=== PATIENT | female | born 1935 | race Caucasian/White ===

== ENCOUNTER 2021-11-02 10:28 | Inpatient (IN) ==
[2021-11-02] MEDS ORDERED: ONDANSETRON 4 MG/2 ML VIAL IV STA (10:37)
[2021-11-02] MEDS ORDERED: fentaNYL 100 MCG/2 ML VIAL IV STA ×2 (10:37→12:06)
[2021-11-02 12:17] LABS: Basophils % 0.3 % (0.0-0.8); Eosinophils % 0.3 % (0.00-10.9); Hematocrit 39.4 VOL% (35.7-47.0); Hemoglobin 12.7 GM/DL (12.0-16.0); Immature Granulocytes % 0.5 %; Immature Granulocytes Absolute 0.07 #; Lymphocytes # 1.3 10*3/uL (1.4-4.0); Lymphocytes % 8.7 % (21.3-54.2); Mean Corpuscular HGB Conc 32.2 GM/DL (32-36); Mean Corpuscular Volume 92.3 FL (87-102); Mean Platelet Volume 10.3 FL (9.6-12.0); Monocytes # 0.5 10*3/uL (0.11-0.8); Monocytes % 3.4 % (1.7-12.7); Neutrophils % 86.8 % (38.7-73.9); Platelet Count 242 T/CUMM (130-400); Red Blood Count 4.27 MC/CUMM (3.8-5.5); Red Cell Distribution Width 13.2 % (9.3-17.3); White Blood Count 14.5 T/CUMM (4-12)
[2021-11-02 12:27] LABS: PT Patient Result 11.4 SECS (10.5-12.0); Partial Thromboplastin Time 28.5 SECS (23.8-32.1)
[2021-11-02] MEDS ORDERED: SIMETHICONE CHEW 125 MG TABLET PO PRN (12:57)
[2021-11-02] MEDS ORDERED: GLUCAGON 1 MG VIAL IM PRN (12:57)
[2021-11-02] MEDS ORDERED: DEXTROSE 10% 250 ML BAG IV PRN (12:57)
[2021-11-02] MEDS ORDERED: hydrALAZINE 20 MG/1 ML VIAL IV PRN (12:57)
[2021-11-02] MEDS ORDERED: ALUMINUM/MAGNES/SIMETH MAX STR 30 ML UDCUP PO PRN (12:57)
[2021-11-02] MEDS ORDERED: ONDANSETRON 4 MG/2 ML VIAL IV PRN (12:57)
[2021-11-02] MEDS ORDERED: DOCUSATE SODIUM 100 MG CAPSULE PO PRN (12:57)
[2021-11-02 13:19] LABS: Albumin 3.8 G/DL (3.4-5.0); Bilirubin,Total 0.7 MG/DL (0.20-1.00); Calcium 9.1 MG/DL (8.5-10.1); Total Protein 7.3 G/DL (6.4-8.2)
[2021-11-02 13:26] LABS: Thyroid Stimulating Hormone 2.49 uIU/ml (0.358-3.74)
[2021-11-02] MEDS: LACTATED RINGERS 1,000 ML IV SCH (14:20)
[2021-11-02] MEDS: FLECAINIDE 50 MG TABLET PO SCH (17:30)
[2021-11-02] MEDS: MULTIVITAMIN (OCUVITE) TABLET PO SCH (17:30)
[2021-11-02] MEDS: PROPRANOLOL 40 MG TABLET PO SCH (17:30)
[2021-11-02] MEDS ORDERED: MEPERIDINE 25 MG/1 ML VIAL IV PRN (17:34)
[2021-11-02] MEDS: MEPERIDINE 25 MG/1 ML VIAL IV PRN ×2 (17:50→22:09)
[2021-11-02 18:41] LABS: Bacteria,Urine Moderate /HPF (Few); Mucus,Urine Occasional /LPF (Occasional); RBC,Urine 8 /HPF (0-4); Squamous Epithelial Cell,Urine Occasional /HPF (0-10)
[2021-11-02 18:45] LABS: Urine Appearance Clear (Clear); Urine Color Yellow (Yellow)
[2021-11-02 18:46] LABS: Bilirubin,Urine Negative (Negative); Blood, Urine Small mg/dL (Negative); Glucose,Urine (UA) Negative (Negative); Ketones,Urine >=160 mg/dL (Negative); Nitrite,Urine Negative (Negative); Protein,Urine Negative (Negative); Urine Specific Gravity 1.025 (1.001-1.035); Urine Urobilinogen 0.2 eU/dL (<2.0)
[2021-11-02] MEDS: NORTRIPTYLINE 25 MG CAPSULE PO SCH (20:16)
[2021-11-03] MEDS: LACTATED RINGERS 1,000 ML IV SCH ×3 (02:28→09:24)
[2021-11-03 05:56] LABS: Basophils % 0.3 % (0.0-0.8); Eosinophils # 0.1 10*3/uL (0.0-0.87); Eosinophils % 0.9 % (0.00-10.9); Immature Granulocytes % 0.5 %; Immature Granulocytes Absolute 0.06 #; Lymphocytes # 1.7 10*3/uL (1.4-4.0); Lymphocytes % 13.2 % (21.3-54.2); Mean Corpuscular HGB Conc 31.4 GM/DL (32-36); Mean Corpuscular Volume 93.8 FL (87-102); Mean Platelet Volume 10.6 FL (9.6-12.0); Monocytes % 8.1 % (1.7-12.7); Platelet Count 193 T/CUMM (130-400); Red Blood Count 3.73 MC/CUMM (3.8-5.5); Red Cell Distribution Width 13.2 % (9.3-17.3); White Blood Count 12.9 T/CUMM (4-12)
[2021-11-03] MEDS ORDERED: CLINDAMYCIN INJ 900 MG/50 ML PREMIX IV ONE (05:56)
[2021-11-03] MEDS ORDERED: ONDANSETRON 4 MG/2 ML VIAL ONE (06:19)
[2021-11-03] MEDS ORDERED: SEVOFLURANE 1 UNIT/15 MINUTE INH ONE ×6 (06:19→08:25)
[2021-11-03] MEDS ORDERED: ACETAMINOPHEN INJ 1,000 MG/100 ML VIAL IV ONE (06:19)
[2021-11-03] MEDS ORDERED: LIDOCAINE 2% 5 ML VIAL ONE (06:19)
[2021-11-03] MEDS ORDERED: ROCURONIUM 50 MG/5 ML VIAL IV ONE (06:19)
[2021-11-03] MEDS ORDERED: propofoL 200 MG/20 ML VIAL IV ONE (06:19)
[2021-11-03] MEDS ORDERED: DEXAMETHASONE 4 MG/1 ML VIAL ONE ×3 (06:19→07:40)
[2021-11-03] MEDS ORDERED: fentaNYL 100 MCG/2 ML VIAL ONE (06:23)
[2021-11-03] MEDS ORDERED: DEXMEDETOMIDINE 200 MCG/2 ML VIAL ONE (06:25)
[2021-11-03 06:26] LABS: Albumin 3.1 G/DL (3.4-5.0); Bilirubin,Total 0.7 MG/DL (0.20-1.00); Osmolality,Calculated 273.8 MOS/KG (273-304); Potassium 4.3 MMOL/L (3.5-5.1); Risk Ratio 3.35; Total Protein 5.8 G/DL (6.4-8.2); VLDL Cholesterol 29.8 MG/DL
[2021-11-03] MEDS ORDERED: ROPIVACAINE 0.5% 30 ML VIAL ONE (06:31)
[2021-11-03] MEDS ORDERED: LIDOCAINE 1% 5 ML VIAL ONE (06:31)
[2021-11-03] MEDS ORDERED: ePHEDrine 50 MG/ML VIAL ONE ×2 (07:09→07:24)
[2021-11-03] MEDS ORDERED: PHENYLEPHRINE 1 MG/10 ML SYRINGE IV ONE ×2 (07:11→07:40)
[2021-11-03] MEDS ORDERED: LACTATED RINGERS 1,000 ML IV ONE (07:32)
[2021-11-03] MEDS ORDERED: PHENYLEPHRINE 10 MG/1 ML VIAL IV ONE (07:35)
[2021-11-03] MEDS ORDERED: SODIUM CHLORIDE 0.9% 250 ML IV ONE (07:40)
[2021-11-03] MEDS ORDERED: GLYCOPYRROLATE 0.4 MG/2 ML VIAL ONE (07:43)
[2021-11-03] MEDS ORDERED: NEOSTIGMINE 10 MG/10 ML VIAL ONE (07:45)
[2021-11-03] MEDS ORDERED: diphenhydrAMINE CAP 25 MG CAPSULE PO PRN (08:34)
[2021-11-03] MEDS ORDERED: LACTULOSE 20 GM/30 ML UDCUP PO PRN (08:34)
[2021-11-03] MEDS: HYDROmorphone 1 MG/1 ML SYRINGE IV PRN ×2 (09:02→09:16)
[2021-11-03] MEDS ORDERED: ONDANSETRON 4 MG/2 ML VIAL IV PRN (09:04)
[2021-11-03] MEDS ORDERED: HYDROmorphone 1 MG/1 ML SYRINGE ONE (09:05)
[2021-11-03] MEDS: PANTOPRAZOLE 40 MG TABLET PO SCH (09:33)
[2021-11-03] MEDS ORDERED: NALOXONE 0.4 MG/ML VIAL IV PRN (11:48)
[2021-11-03] MEDS: CLINDAMYCIN INJ 900 MG/50 ML PREMIX IV SCH ×2 (14:45→22:38)
[2021-11-03] MEDS: MULTIVITAMIN (OCUVITE) TABLET PO SCH (16:17)
[2021-11-03] MEDS: PROPRANOLOL 40 MG TABLET PO SCH (16:17)
[2021-11-03] MEDS: FLECAINIDE 50 MG TABLET PO SCH (16:17)
[2021-11-03 21:49] LABS: Basophils % 0.1 % (0.0-0.8); Hematocrit 25.7 VOL% (35.7-47.0); Hemoglobin 8.5 GM/DL (12.0-16.0); Immature Granulocytes % 0.6 %; Immature Granulocytes Absolute 0.09 #; Lymphocytes # 0.6 10*3/uL (1.4-4.0); Lymphocytes % 4.4 % (21.3-54.2); Mean Corpuscular HGB Conc 33.1 GM/DL (32-36); Mean Corpuscular Volume 92.1 FL (87-102); Mean Platelet Volume 9.7 FL (9.6-12.0); Monocytes # 0.9 10*3/uL (0.11-0.8); Monocytes % 6.7 % (1.7-12.7); Neutrophils % 88.2 % (38.7-73.9); Platelet Count 172 T/CUMM (130-400); Red Blood Count 2.79 MC/CUMM (3.8-5.5); Red Cell Distribution Width 13.1 % (9.3-17.3); White Blood Count 13.9 T/CUMM (4-12)
[2021-11-03 22:00] LABS: INR 1.1; PT Patient Result 12.4 SECS (10.5-12.0); Partial Thromboplastin Time 32.2 SECS (23.8-32.1)
[2021-11-03 22:12] LABS: Albumin 2.7 G/DL (3.4-5.0); Bilirubin,Total 0.5 MG/DL (0.20-1.00); Calcium 8.3 MG/DL (8.5-10.1); Potassium 4.3 MMOL/L (3.5-5.1); Total Protein 5.4 G/DL (6.4-8.2)
[2021-11-03] MEDS: FONDAPARINUX 2.5 MG/0.5 ML SYRINGE SUBCUT SCH (22:22)
[2021-11-03] MEDS: NORTRIPTYLINE 25 MG CAPSULE PO SCH (22:22)
[2021-11-03 22:25] LABS: Lymphocytes 4 % (20-55); Platelet Estimate Adequate; Total Cells Counted 100
[2021-11-04] MEDS: HYDROmorphone 1 MG/1 ML SYRINGE IV PRN ×4 (02:55→20:37)
[2021-11-04 06:07] LABS: Basophils % 0.1 % (0.0-0.8); Hematocrit 23.6 VOL% (35.7-47.0); Hemoglobin 7.6 GM/DL (12.0-16.0); Immature Granulocytes % 0.6 %; Immature Granulocytes Absolute 0.09 #; Lymphocytes % 6.4 % (21.3-54.2); Mean Corpuscular HGB Conc 32.2 GM/DL (32-36); Mean Corpuscular Volume 92.2 FL (87-102); Monocytes # 1.1 10*3/uL (0.11-0.8); Monocytes % 7.5 % (1.7-12.7); Neutrophils % 85.4 % (38.7-73.9); Platelet Count 158 T/CUMM (130-400); Red Blood Count 2.56 MC/CUMM (3.8-5.5); Red Cell Distribution Width 13.2 % (9.3-17.3); White Blood Count 14.7 T/CUMM (4-12)
[2021-11-04 06:30] LABS: Calcium 8.1 MG/DL (8.5-10.1); Osmolality,Calculated 275.8 MOS/KG (273-304); Potassium 4.3 MMOL/L (3.5-5.1)
[2021-11-04] MEDS ORDERED: ALBUTEROL 2.5 MG/3 ML NEB RESP TX PRN (07:30)
[2021-11-04] MEDS ORDERED: SODIUM CHLORIDE 0.9% 1,000 ML IV PRN (08:17)
[2021-11-04] MEDS: CLINDAMYCIN INJ 900 MG/50 ML PREMIX IV SCH (08:39)
[2021-11-04] MEDS: PANTOPRAZOLE 40 MG TABLET PO SCH (08:43)
[2021-11-04] MEDS: PROPRANOLOL 40 MG TABLET PO SCH (17:41)
[2021-11-04] MEDS: FLECAINIDE 50 MG TABLET PO SCH (17:41)
[2021-11-04] MEDS: MULTIVITAMIN (OCUVITE) TABLET PO SCH (17:41)
[2021-11-04] MEDS: NORTRIPTYLINE 25 MG CAPSULE PO SCH (20:37)
[2021-11-04] MEDS: FONDAPARINUX 2.5 MG/0.5 ML SYRINGE SUBCUT SCH (20:38)
[2021-11-05] MEDS: LACTATED RINGERS 1,000 ML IV SCH ×2 (05:07→06:18)
[2021-11-05] MEDS: HYDROmorphone 1 MG/1 ML SYRINGE IV PRN (05:31)
[2021-11-05 05:34] LABS: Basophils % 0.3 % (0.0-0.8); Eosinophils # 0.1 10*3/uL (0.0-0.87); Eosinophils % 0.9 % (0.00-10.9); Hematocrit 31.1 VOL% (35.7-47.0); Hemoglobin 10.2 GM/DL (12.0-16.0); Immature Granulocytes % 0.5 %; Immature Granulocytes Absolute 0.07 #; Lymphocytes # 1.2 10*3/uL (1.4-4.0); Lymphocytes % 9.2 % (21.3-54.2); Mean Corpuscular HGB Conc 32.8 GM/DL (32-36); Mean Corpuscular Volume 90.9 FL (87-102); Mean Platelet Volume 10.6 FL (9.6-12.0); Monocytes # 1.5 10*3/uL (0.11-0.8); Monocytes % 11.6 % (1.7-12.7); Neutrophils % 77.5 % (38.7-73.9); Platelet Count 159 T/CUMM (130-400); Red Blood Count 3.42 MC/CUMM (3.8-5.5); Red Cell Distribution Width 14.8 % (9.3-17.3); White Blood Count 12.8 T/CUMM (4-12)
[2021-11-05 06:03] LABS: Calcium 8.5 MG/DL (8.5-10.1); Osmolality,Calculated 279.5 MOS/KG (273-304); Potassium 3.9 MMOL/L (3.5-5.1)
[2021-11-05 06:10] LABS: Folate 5.69 NG/ML (5.38-24.0)
[2021-11-05 06:10] LABS: % Iron Saturation 15.7 % (18-50)
[2021-11-05] MEDS: PANTOPRAZOLE 40 MG TABLET PO SCH (09:00)
[2021-11-05] MEDS: FERROUS SULFATE 325 MG TABLET PO SCH (09:00)
[2021-11-05] MEDS ORDERED: MAGNESIUM HYDROXIDE SUSP 30 ML UDCUP PO ONE (10:30)
[2021-11-05] MEDS: MULTIVITAMIN (OCUVITE) TABLET PO SCH (16:54)
[2021-11-05] MEDS: FLECAINIDE 50 MG TABLET PO SCH (16:54)
[2021-11-05] MEDS: PROPRANOLOL 40 MG TABLET PO SCH (16:54)
[2021-11-05] MEDS: DOCUSATE SODIUM 100 MG CAPSULE PO SCH (21:34)
[2021-11-05] MEDS: NORTRIPTYLINE 25 MG CAPSULE PO SCH (21:36)
[2021-11-05] MEDS: FONDAPARINUX 2.5 MG/0.5 ML SYRINGE SUBCUT SCH (21:36)
[2021-11-06 04:22] LABS: Basophils % 0.3 % (0.0-0.8); Eosinophils # 0.2 10*3/uL (0.0-0.87); Eosinophils % 1.7 % (0.00-10.9); Hematocrit 29.4 VOL% (35.7-47.0); Hemoglobin 9.4 GM/DL (12.0-16.0); Immature Granulocytes % 0.5 %; Immature Granulocytes Absolute 0.06 #; Lymphocytes # 1.9 10*3/uL (1.4-4.0); Lymphocytes % 16.6 % (21.3-54.2); Mean Corpuscular Volume 92.5 FL (87-102); Mean Platelet Volume 10.5 FL (9.6-12.0); Monocytes # 1.3 10*3/uL (0.11-0.8); Monocytes % 11.7 % (1.7-12.7); Neutrophils % 69.2 % (38.7-73.9); Platelet Count 167 T/CUMM (130-400); Red Blood Count 3.18 MC/CUMM (3.8-5.5); Red Cell Distribution Width 14.6 % (9.3-17.3); White Blood Count 11.2 T/CUMM (4-12)
[2021-11-06 04:36] LABS: Calcium 8.7 MG/DL (8.5-10.1); Osmolality,Calculated 278.5 MOS/KG (273-304)
[2021-11-06 04:46] LABS: Hypochromia Slight; Platelet Estimate Normal
[2021-11-06] MEDS: HYDROmorphone 1 MG/1 ML SYRINGE IV PRN (08:54)
[2021-11-06] MEDS: DOCUSATE SODIUM 100 MG CAPSULE PO SCH ×2 (08:54→20:52)
[2021-11-06] MEDS: FERROUS SULFATE 325 MG TABLET PO SCH (08:54)
[2021-11-06] MEDS: BISACODYL 10 MG SUPP RECTAL PRN (08:54)
[2021-11-06] MEDS: PANTOPRAZOLE 40 MG TABLET PO SCH (08:54)
[2021-11-06] MEDS ORDERED: SODIUM PHOSPHATE ENEMA 133 ML BOTTLE RECTAL ONE (09:55)
[2021-11-06] MEDS ORDERED: BISACODYL 10 MG SUPP RECTAL ONE (10:08)
[2021-11-06] MEDS: MAGNESIUM HYDROXIDE SUSP 30 ML UDCUP PO PRN (13:22)
[2021-11-06] MEDS: FLECAINIDE 50 MG TABLET PO SCH (16:36)
[2021-11-06] MEDS: MULTIVITAMIN (OCUVITE) TABLET PO SCH (16:36)
[2021-11-06] MEDS: PROPRANOLOL 40 MG TABLET PO SCH (16:36)
[2021-11-06] MEDS: NORTRIPTYLINE 25 MG CAPSULE PO SCH (20:52)
[2021-11-07 05:17] LABS: Basophils % 0.2 % (0.0-0.8); Eosinophils # 0.2 10*3/uL (0.0-0.87); Eosinophils % 1.8 % (0.00-10.9); Hematocrit 26.8 VOL% (35.7-47.0); Hemoglobin 8.6 GM/DL (12.0-16.0); Immature Granulocytes % 0.6 %; Immature Granulocytes Absolute 0.06 #; Lymphocytes # 1.8 10*3/uL (1.4-4.0); Lymphocytes % 18.5 % (21.3-54.2); Mean Corpuscular HGB Conc 32.1 GM/DL (32-36); Mean Platelet Volume 10.4 FL (9.6-12.0); Monocytes # 1.1 10*3/uL (0.11-0.8); Monocytes % 11.7 % (1.7-12.7); Neutrophils % 67.2 % (38.7-73.9); Platelet Count 204 T/CUMM (130-400); Red Blood Count 2.85 MC/CUMM (3.8-5.5); Red Cell Distribution Width 14.1 % (9.3-17.3); White Blood Count 9.8 T/CUMM (4-12)
[2021-11-07 05:32] LABS: Calcium 8.4 MG/DL (8.5-10.1); Osmolality,Calculated 278.5 MOS/KG (273-304); Potassium 4.7 MMOL/L (3.5-5.1)
[2021-11-07] MEDS: PANTOPRAZOLE 40 MG TABLET PO SCH (09:39)
[2021-11-07] MEDS: FERROUS SULFATE 325 MG TABLET PO SCH (09:39)
[2021-11-07] MEDS: DOCUSATE SODIUM 100 MG CAPSULE PO SCH ×2 (09:41→20:46)
[2021-11-07] MEDS: FLECAINIDE 50 MG TABLET PO SCH (17:41)
[2021-11-07] MEDS: PROPRANOLOL 40 MG TABLET PO SCH (17:41)
[2021-11-07] MEDS: MULTIVITAMIN (OCUVITE) TABLET PO SCH (17:41)
[2021-11-07] MEDS: NORTRIPTYLINE 25 MG CAPSULE PO SCH (20:46)
[2021-11-08 05:48] LABS: Basophils % 0.3 % (0.0-0.8); Eosinophils # 0.2 10*3/uL (0.0-0.87); Eosinophils % 1.8 % (0.00-10.9); Hematocrit 26.4 VOL% (35.7-47.0); Hemoglobin 8.4 GM/DL (12.0-16.0); Immature Granulocytes % 0.9 %; Immature Granulocytes Absolute 0.09 #; Lymphocytes # 1.7 10*3/uL (1.4-4.0); Lymphocytes % 16.9 % (21.3-54.2); Mean Corpuscular HGB Conc 31.8 GM/DL (32-36); Mean Corpuscular Volume 93.3 FL (87-102); Mean Platelet Volume 10.4 FL (9.6-12.0); Monocytes # 1.3 10*3/uL (0.11-0.8); Monocytes % 13.1 % (1.7-12.7); Platelet Count 228 T/CUMM (130-400); Red Blood Count 2.83 MC/CUMM (3.8-5.5); Red Cell Distribution Width 14.2 % (9.3-17.3)
[2021-11-08 06:00] LABS: Calcium 8.5 MG/DL (8.5-10.1); Osmolality,Calculated 280.4 MOS/KG (273-304); Potassium 3.9 MMOL/L (3.5-5.1)
[2021-11-08] MEDS: ASPIRIN EC 81 MG TABLET PO SCH (08:46)
[2021-11-08] MEDS: FERROUS SULFATE 325 MG TABLET PO SCH (08:46)
[2021-11-08] MEDS: PANTOPRAZOLE 40 MG TABLET PO SCH (08:46)
[2021-11-08] MEDS: DOCUSATE SODIUM 100 MG CAPSULE PO SCH ×2 (08:52→21:51)
[2021-11-08] MEDS ORDERED: TUBERCULIN SKIN TEST 0.1 ML SYRINGE INTRADERM ONE (11:00)
[2021-11-08] MEDS: FLECAINIDE 50 MG TABLET PO SCH (16:37)
[2021-11-08] MEDS: MULTIVITAMIN (OCUVITE) TABLET PO SCH (16:37)
[2021-11-08] MEDS: PROPRANOLOL 40 MG TABLET PO SCH (16:37)
[2021-11-08] MEDS: NORTRIPTYLINE 25 MG CAPSULE PO SCH (21:51)
[2021-11-09 06:54] LABS: Basophils % 0.2 % (0.0-0.8); Eosinophils # 0.2 10*3/uL (0.0-0.87); Eosinophils % 1.3 % (0.00-10.9); Hematocrit 27.1 VOL% (35.7-47.0); Hemoglobin 8.5 GM/DL (12.0-16.0); Immature Granulocytes % 1.8 %; Immature Granulocytes Absolute 0.21 #; Lymphocytes # 1.7 10*3/uL (1.4-4.0); Lymphocytes % 14.7 % (21.3-54.2); Mean Corpuscular HGB Conc 31.4 GM/DL (32-36); Mean Corpuscular Volume 93.8 FL (87-102); Mean Platelet Volume 9.8 FL (9.6-12.0); Monocytes # 1.3 10*3/uL (0.11-0.8); Monocytes % 11.2 % (1.7-12.7); Neutrophils % 70.8 % (38.7-73.9); Platelet Count 281 T/CUMM (130-400); Red Blood Count 2.89 MC/CUMM (3.8-5.5); Red Cell Distribution Width 14.1 % (9.3-17.3); White Blood Count 11.4 T/CUMM (4-12)
[2021-11-09 07:11] LABS: Calcium 8.6 MG/DL (8.5-10.1); Osmolality,Calculated 276.5 MOS/KG (273-304); Potassium 3.7 MMOL/L (3.5-5.1)
[2021-11-09] MEDS: PANTOPRAZOLE 40 MG TABLET PO SCH (08:55)
[2021-11-09] MEDS: ASPIRIN EC 81 MG TABLET PO SCH (08:55)
[2021-11-09] MEDS: FERROUS SULFATE 325 MG TABLET PO SCH (08:56)
[2021-11-09] MEDS: DOCUSATE SODIUM 100 MG CAPSULE PO SCH ×2 (08:57→20:39)
[2021-11-09] MEDS: MAGNESIUM HYDROXIDE SUSP 30 ML UDCUP PO PRN (14:26)
[2021-11-09] MEDS: BISACODYL 10 MG SUPP RECTAL PRN (14:26)
[2021-11-09] MEDS: MULTIVITAMIN (OCUVITE) TABLET PO SCH (16:18)
[2021-11-09] MEDS: FLECAINIDE 50 MG TABLET PO SCH (16:18)
[2021-11-09] MEDS: PROPRANOLOL 40 MG TABLET PO SCH (16:18)
[2021-11-09] MEDS: NORTRIPTYLINE 25 MG CAPSULE PO SCH (20:39)
[2021-11-10 05:20] LABS: Basophils % 0.3 % (0.0-0.8); Eosinophils # 0.2 10*3/uL (0.0-0.87); Eosinophils % 1.4 % (0.00-10.9); Hematocrit 26.8 VOL% (35.7-47.0); Hemoglobin 8.6 GM/DL (12.0-16.0); Immature Granulocytes % 1.8 %; Immature Granulocytes Absolute 0.22 #; Lymphocytes # 1.8 10*3/uL (1.4-4.0); Lymphocytes % 14.1 % (21.3-54.2); Mean Corpuscular HGB Conc 32.1 GM/DL (32-36); Mean Corpuscular Volume 93.7 FL (87-102); Mean Platelet Volume 9.5 FL (9.6-12.0); Monocytes # 1.2 10*3/uL (0.11-0.8); Monocytes % 9.8 % (1.7-12.7); Neutrophils % 72.6 % (38.7-73.9); Platelet Count 322 T/CUMM (130-400); Red Blood Count 2.86 MC/CUMM (3.8-5.5); Red Cell Distribution Width 14.5 % (9.3-17.3); White Blood Count 12.6 T/CUMM (4-12)
[2021-11-10 05:36] LABS: Calcium 8.4 MG/DL (8.5-10.1); Osmolality,Calculated 275.7 MOS/KG (273-304); Potassium 4.2 MMOL/L (3.5-5.1)
[2021-11-10] MEDS: FERROUS SULFATE 325 MG TABLET PO SCH (08:51)
[2021-11-10] MEDS: ASPIRIN EC 81 MG TABLET PO SCH (08:51)
[2021-11-10] MEDS: DOCUSATE SODIUM 100 MG CAPSULE PO SCH ×2 (08:51→21:14)
[2021-11-10] MEDS: PANTOPRAZOLE 40 MG TABLET PO SCH (08:51)
[2021-11-10] MEDS: FLECAINIDE 50 MG TABLET PO SCH (17:02)
[2021-11-10] MEDS: PROPRANOLOL 40 MG TABLET PO SCH (17:02)
[2021-11-10] MEDS: MULTIVITAMIN (OCUVITE) TABLET PO SCH (17:03)
[2021-11-10] MEDS: NORTRIPTYLINE 25 MG CAPSULE PO SCH (21:14)
[2021-11-11 05:25] LABS: Basophils % 0.3 % (0.0-0.8); Eosinophils # 0.3 10*3/uL (0.0-0.87); Hematocrit 27.9 VOL% (35.7-47.0); Immature Granulocytes % 2.3 %; Immature Granulocytes Absolute 0.28 #; Lymphocytes # 2.3 10*3/uL (1.4-4.0); Lymphocytes % 18.9 % (21.3-54.2); Mean Corpuscular HGB Conc 32.3 GM/DL (32-36); Mean Corpuscular Volume 94.6 FL (87-102); Mean Platelet Volume 9.7 FL (9.6-12.0); Monocytes # 1.2 10*3/uL (0.11-0.8); Monocytes % 9.9 % (1.7-12.7); Neutrophils % 66.6 % (38.7-73.9); Platelet Count 388 T/CUMM (130-400); Red Blood Count 2.95 MC/CUMM (3.8-5.5); Red Cell Distribution Width 14.9 % (9.3-17.3); White Blood Count 12.2 T/CUMM (4-12)
[2021-11-11] MEDS: FERROUS SULFATE 325 MG TABLET PO SCH (09:54)
[2021-11-11] MEDS: PANTOPRAZOLE 40 MG TABLET PO SCH (09:54)
[2021-11-11] MEDS: DOCUSATE SODIUM 100 MG CAPSULE PO SCH ×2 (09:54→21:05)
[2021-11-11] MEDS: ASPIRIN EC 81 MG TABLET PO SCH (09:54)
[2021-11-11] MEDS: FLECAINIDE 50 MG TABLET PO SCH (16:07)
[2021-11-11] MEDS: MULTIVITAMIN (OCUVITE) TABLET PO SCH (16:07)
[2021-11-11] MEDS: PROPRANOLOL 40 MG TABLET PO SCH (16:07)
[2021-11-11] MEDS: ACETAMINOPHEN 325 MG TABLET PO PRN ×2 (16:08→21:06)
[2021-11-11] MEDS: NORTRIPTYLINE 25 MG CAPSULE PO SCH (21:05)
[2021-11-12 04:51] LABS: Basophils % 0.3 % (0.0-0.8); Eosinophils # 0.3 10*3/uL (0.0-0.87); Eosinophils % 2.5 % (0.00-10.9); Hematocrit 29.5 VOL% (35.7-47.0); Hemoglobin 9.1 GM/DL (12.0-16.0); Immature Granulocytes % 2.8 %; Lymphocytes # 1.9 10*3/uL (1.4-4.0); Lymphocytes % 17.2 % (21.3-54.2); Mean Corpuscular HGB Conc 30.8 GM/DL (32-36); Mean Corpuscular Volume 95.8 FL (87-102); Mean Platelet Volume 10.4 FL (9.6-12.0); Monocytes # 1.1 10*3/uL (0.11-0.8); Monocytes % 10.1 % (1.7-12.7); Neutrophils % 67.1 % (38.7-73.9); Platelet Count 415 T/CUMM (130-400); Red Blood Count 3.08 MC/CUMM (3.8-5.5); Red Cell Distribution Width 15.2 % (9.3-17.3); White Blood Count 10.9 T/CUMM (4-12)
[2021-11-12 05:16] LABS: Osmolality,Calculated 278.5 MOS/KG (273-304); Potassium 4.2 MMOL/L (3.5-5.1)
[2021-11-12] MEDS: DOCUSATE SODIUM 100 MG CAPSULE PO SCH ×2 (08:29→20:39)
[2021-11-12] MEDS: FERROUS SULFATE 325 MG TABLET PO SCH (08:29)
[2021-11-12] MEDS: ASPIRIN EC 81 MG TABLET PO SCH (08:29)
[2021-11-12] MEDS: PANTOPRAZOLE 40 MG TABLET PO SCH (08:29)
[2021-11-12] MEDS: ACETAMINOPHEN 325 MG TABLET PO PRN (10:40)
[2021-11-12] MEDS: MULTIVITAMIN (OCUVITE) TABLET PO SCH (16:03)
[2021-11-12] MEDS: FLECAINIDE 50 MG TABLET PO SCH (16:03)
[2021-11-12] MEDS: PROPRANOLOL 40 MG TABLET PO SCH (16:03)
[2021-11-12] MEDS: busPIRone 5 MG TABLET PO SCH (20:38)
[2021-11-12] MEDS: MELATONIN 3 MG TABLET PO SCH (20:39)
[2021-11-12] MEDS: NORTRIPTYLINE 25 MG CAPSULE PO SCH (20:40)
[2021-11-13] MEDS: PANTOPRAZOLE 40 MG TABLET PO SCH (08:18)
[2021-11-13] MEDS: FERROUS SULFATE 325 MG TABLET PO SCH (08:18)
[2021-11-13] MEDS: ASPIRIN EC 81 MG TABLET PO SCH (08:18)
[2021-11-13] MEDS: busPIRone 5 MG TABLET PO SCH ×2 (08:18→20:20)
[2021-11-13] MEDS: DOCUSATE SODIUM 100 MG CAPSULE PO SCH ×2 (08:19→20:20)
[2021-11-13] MEDS: PROPRANOLOL 40 MG TABLET PO SCH (16:06)
[2021-11-13] MEDS: FLECAINIDE 50 MG TABLET PO SCH (16:06)
[2021-11-13] MEDS: MULTIVITAMIN (OCUVITE) TABLET PO SCH (16:06)
[2021-11-13] MEDS: NORTRIPTYLINE 25 MG CAPSULE PO SCH (20:20)
[2021-11-13] MEDS: MELATONIN 3 MG TABLET PO SCH (20:20)
[2021-11-13] MEDS: ACETAMINOPHEN 325 MG TABLET PO PRN (20:21)
[2021-11-14] MEDS: ACETAMINOPHEN 325 MG TABLET PO PRN ×2 (01:23→11:13)
[2021-11-14] MEDS: FERROUS SULFATE 325 MG TABLET PO SCH (08:05)
[2021-11-14] MEDS: ASPIRIN EC 81 MG TABLET PO SCH (08:05)
[2021-11-14] MEDS: busPIRone 5 MG TABLET PO SCH ×2 (08:05→20:30)
[2021-11-14] MEDS: PANTOPRAZOLE 40 MG TABLET PO SCH (08:06)
[2021-11-14] MEDS: DOCUSATE SODIUM 100 MG CAPSULE PO SCH ×2 (08:06→20:30)
[2021-11-14] MEDS: FLECAINIDE 50 MG TABLET PO SCH (16:02)
[2021-11-14] MEDS: MULTIVITAMIN (OCUVITE) TABLET PO SCH (16:02)
[2021-11-14] MEDS: PROPRANOLOL 40 MG TABLET PO SCH (16:02)
[2021-11-14] MEDS: MELATONIN 3 MG TABLET PO SCH (20:29)
[2021-11-14] MEDS: NORTRIPTYLINE 25 MG CAPSULE PO SCH (20:30)
[2021-11-15 05:04] LABS: Basophils % 0.2 % (0.0-0.8); Eosinophils # 0.4 10*3/uL (0.0-0.87); Eosinophils % 2.6 % (0.00-10.9); Hematocrit 29.8 VOL% (35.7-47.0); Hemoglobin 9.1 GM/DL (12.0-16.0); Immature Granulocytes % 1.7 %; Immature Granulocytes Absolute 0.23 #; Lymphocytes # 2.3 10*3/uL (1.4-4.0); Lymphocytes % 16.5 % (21.3-54.2); Mean Corpuscular HGB Conc 30.5 GM/DL (32-36); Mean Corpuscular Volume 96.8 FL (87-102); Mean Platelet Volume 9.2 FL (9.6-12.0); Monocytes % 6.8 % (1.7-12.7); Neutrophils % 72.2 % (38.7-73.9); Platelet Count 443 T/CUMM (130-400); Red Blood Count 3.08 MC/CUMM (3.8-5.5); Red Cell Distribution Width 16.2 % (9.3-17.3); White Blood Count 13.9 T/CUMM (4-12)
[2021-11-15 05:16] LABS: Calcium 8.9 MG/DL (8.5-10.1); Osmolality,Calculated 277.5 MOS/KG (273-304); Potassium 3.7 MMOL/L (3.5-5.1)
[2021-11-15] MEDS: FERROUS SULFATE 325 MG TABLET PO SCH (08:43)
[2021-11-15] MEDS: DOCUSATE SODIUM 100 MG CAPSULE PO SCH ×2 (08:43→20:39)
[2021-11-15] MEDS: busPIRone 5 MG TABLET PO SCH ×2 (08:43→20:37)
[2021-11-15] MEDS: ASPIRIN EC 81 MG TABLET PO SCH (08:43)
[2021-11-15] MEDS: PANTOPRAZOLE 40 MG TABLET PO SCH (08:44)
[2021-11-15] MEDS ORDERED: ENOXAPARIN 40 MG/0.4 ML SYRINGE SUBCUT SCH (16:00)
[2021-11-15] MEDS: MULTIVITAMIN (OCUVITE) TABLET PO SCH (17:07)
[2021-11-15] MEDS: PROPRANOLOL 40 MG TABLET PO SCH (17:07)
[2021-11-15] MEDS: FLECAINIDE 50 MG TABLET PO SCH (17:08)
[2021-11-15] MEDS: MELATONIN 3 MG TABLET PO SCH (20:37)
[2021-11-15] MEDS: NORTRIPTYLINE 25 MG CAPSULE PO SCH (20:37)
[2021-11-16 05:06] LABS: Basophils # 0.1 10*3/uL (0.0-0.2); Basophils % 0.4 % (0.0-0.8); Eosinophils # 0.3 10*3/uL (0.0-0.87); Eosinophils % 2.5 % (0.00-10.9); Hematocrit 28.6 VOL% (35.7-47.0); Immature Granulocytes % 1.6 %; Immature Granulocytes Absolute 0.22 #; Lymphocytes # 2.3 10*3/uL (1.4-4.0); Lymphocytes % 16.6 % (21.3-54.2); Mean Corpuscular HGB Conc 31.5 GM/DL (32-36); Mean Corpuscular Volume 97.6 FL (87-102); Monocytes # 1.1 10*3/uL (0.11-0.8); Monocytes % 7.9 % (1.7-12.7); Platelet Count 444 T/CUMM (130-400); Red Blood Count 2.93 MC/CUMM (3.8-5.5); Red Cell Distribution Width 16.6 % (9.3-17.3); White Blood Count 13.7 T/CUMM (4-12)
[2021-11-16 05:24] LABS: Calcium 9.3 MG/DL (8.5-10.1); Osmolality,Calculated 279.5 MOS/KG (273-304); Potassium 4.7 MMOL/L (3.5-5.1)
[2021-11-16] MEDS: ACETAMINOPHEN 325 MG TABLET PO PRN ×2 (05:38→13:12)
[2021-11-16] MEDS: ASPIRIN EC 81 MG TABLET PO SCH (09:10)
[2021-11-16] MEDS: DOCUSATE SODIUM 100 MG CAPSULE PO SCH (09:10)
[2021-11-16] MEDS: busPIRone 5 MG TABLET PO SCH (09:10)
[2021-11-16] MEDS: FERROUS SULFATE 325 MG TABLET PO SCH (09:10)
[2021-11-16] MEDS: PANTOPRAZOLE 40 MG TABLET PO SCH (09:10)
[2021-11-16 11:27] VITALS: BP 139/65
== END 2021-11-16 13:45 | DRG 481 ==
LOC: N.ED 10:28 → SUATTDRO 12:54 → N.EDINP 12:54 → N.3E 14:46
PROVIDERS: ADMIT Internal Medicine; ATTEND Hospitalist

== ENCOUNTER 2022-03-05 20:39 | Inpatient (IN) ==
[2022-03-05] MEDS ORDERED: ONDANSETRON 4 MG/2 ML VIAL IV ONE (20:54)
[2022-03-05 22:02] LABS: Basophils # 0.1 10*3/uL (0.0-0.2); Basophils % 0.3 % (0.0-0.8); Eosinophils # 0.1 10*3/uL (0.0-0.87); Eosinophils % 0.4 % (0.00-10.9); Hematocrit 38.8 VOL% (35.7-47.0); Hemoglobin 12.8 GM/DL (12.0-16.0); Immature Granulocytes % 1.3 %; Immature Granulocytes Absolute 0.19 #; Lymphocytes # 1.5 10*3/uL (1.4-4.0); Lymphocytes % 10.5 % (21.3-54.2); Mean Corpuscular Volume 92.2 FL (87-102); Mean Platelet Volume 9.5 FL (9.6-12.0); Monocytes # 0.5 10*3/uL (0.11-0.8); Monocytes % 3.8 % (1.7-12.7); Neutrophils % 83.7 % (38.7-73.9); Platelet Count 236 T/CUMM (130-400); Red Blood Count 4.21 MC/CUMM (3.8-5.5); Red Cell Distribution Width 12.9 % (9.3-17.3); White Blood Count 14.3 T/CUMM (4-12)
[2022-03-05] MEDS ORDERED: DEXTROSE 10% 250 ML BAG IV PRN (22:07)
[2022-03-05] MEDS ORDERED: GLUCAGON 1 MG VIAL IM PRN (22:07)
[2022-03-05 22:12] LABS: PT Patient Result 10.7 SECS (10.1-12.1)
[2022-03-05 22:18] LABS: Alanine Aminotransferase 17 U/L (13-56); Albumin 3.3 G/DL (3.4-5.0); Alkaline Phosphatase 107 U/L (45-117); Aspartate Amino Transferase 22 U/L (0-37); Bilirubin,Total < 0.39 MG/DL (0.20-1.00); Blood Urea Nitrogen 24 MG/DL (7-18); Carbon Dioxide 27 MMOL/L (21-32); Chloride 104 MMOL/L (98-107); Glucose 123 MG/DL (74-106); Osmolality,Calculated 279.7 MOS/KG (273-304); Potassium 4.2 MMOL/L (3.5-5.1); Sodium 138 MMOL/L (136-145); Total Protein 6.6 G/DL (6.4-8.2)
[2022-03-05] MEDS ORDERED: ZALEPLON 5 MG CAPSULE PO PRN (22:23)
[2022-03-05] MEDS ORDERED: hydrALAZINE 20 MG/1 ML VIAL IV PRN (22:23)
[2022-03-05] MEDS ORDERED: ACETAMINOPHEN 325 MG TABLET PO PRN (22:23)
[2022-03-05] MEDS ORDERED: diphenhydrAMINE CAP 25 MG CAPSULE PO PRN (22:23)
[2022-03-05] MEDS ORDERED: guaiFENesin/DM ER 600-30 MG TABLET PO PRN (22:23)
[2022-03-05] MEDS ORDERED: ALBUTEROL/IPRATROPIUM 3 ML NEB RESP TX PRN (22:23)
[2022-03-05] MEDS ORDERED: NICOTINE 21 MG/24 HR PATCH TRANSDERM PRN (22:23)
[2022-03-05] MEDS ORDERED: DEXT 5% NACL 0.9% KCL 20 MEQ 20 MEQ/1,000 ML BAG IV SCH (23:45)
[2022-03-06] MEDS: KETOROLAC 15 MG/1 ML VIAL IV PRN ×3 (00:08→19:22)
[2022-03-06 06:07] LABS: Basophils % 0.2 % (0.0-0.8); Eosinophils # 0.1 10*3/uL (0.0-0.87); Eosinophils % 0.5 % (0.00-10.9); Hematocrit 36.1 VOL% (35.7-47.0); Hemoglobin 11.5 GM/DL (12.0-16.0); Immature Granulocytes % 0.6 %; Lymphocytes # 1.3 10*3/uL (1.4-4.0); Lymphocytes % 8.1 % (21.3-54.2); Mean Corpuscular HGB Conc 31.9 GM/DL (32-36); Mean Corpuscular Volume 94.3 FL (87-102); Mean Platelet Volume 9.8 FL (9.6-12.0); Monocytes % 5.8 % (1.7-12.7); Neutrophils % 84.8 % (38.7-73.9); Platelet Count 216 T/CUMM (130-400); Red Blood Count 3.83 MC/CUMM (3.8-5.5); Red Cell Distribution Width 12.8 % (9.3-17.3); White Blood Count 16.3 T/CUMM (4-12)
[2022-03-06 06:29] LABS: Calcium 8.9 MG/DL (8.5-10.1); Osmolality,Calculated 282.4 MOS/KG (273-304); Potassium 5.5 MMOL/L (3.5-5.1)
[2022-03-06] MEDS: PANTOPRAZOLE 40 MG TABLET PO SCH (08:23)
[2022-03-06] MEDS: SODIUM CHLORIDE 0.9% 1,000 ML IV SCH ×2 (08:25→19:30)
[2022-03-06] MEDS: POLYETHYLENE GLYCOL POWDER 17 GM PACK PO SCH (14:03)
[2022-03-06] MEDS: MULTIVITAMIN (OCUVITE) TABLET PO SCH (16:13)
[2022-03-06] MEDS: FLECAINIDE 50 MG TABLET PO SCH (20:36)
[2022-03-06] MEDS: DOCUSATE SODIUM 100 MG CAPSULE PO SCH (20:36)
[2022-03-07] MEDS: KETOROLAC 15 MG/1 ML VIAL IV PRN (02:54)
[2022-03-07 06:00] LABS: Basophils % 0.4 % (0.0-0.8); Eosinophils # 0.3 10*3/uL (0.0-0.87); Eosinophils % 2.6 % (0.00-10.9); Hematocrit 33.2 VOL% (35.7-47.0); Hemoglobin 10.7 GM/DL (12.0-16.0); Immature Granulocytes % 0.5 %; Immature Granulocytes Absolute 0.05 #; Lymphocytes % 10.6 % (21.3-54.2); Mean Corpuscular HGB Conc 32.2 GM/DL (32-36); Mean Corpuscular Volume 94.1 FL (87-102); Mean Platelet Volume 9.9 FL (9.6-12.0); Monocytes # 0.6 10*3/uL (0.11-0.8); Monocytes % 6.1 % (1.7-12.7); Neutrophils % 79.8 % (38.7-73.9); Red Blood Count 3.53 MC/CUMM (3.8-5.5); Red Cell Distribution Width 12.9 % (9.3-17.3)
[2022-03-07 06:02] LABS: White Blood Count 9.7 T/CUMM (4-12)
[2022-03-07 06:03] LABS: Platelet Count 151 T/CUMM (130-400)
[2022-03-07 06:17] LABS: Calcium 8.7 MG/DL (8.5-10.1); Osmolality,Calculated 277.5 MOS/KG (273-304); Potassium 4.1 MMOL/L (3.5-5.1)
[2022-03-07] MEDS: SODIUM CHLORIDE 0.9% 1,000 ML IV SCH ×2 (07:56→17:40)
[2022-03-07] MEDS ORDERED: SODIUM CHLORIDE 0.9% 1,000 ML IV SCH (08:30)
[2022-03-07] MEDS ORDERED: CLINDAMYCIN INJ 900 MG/50 ML PREMIX IV ONE (09:00)
[2022-03-07] MEDS ORDERED: BUPIVACAINE MPF 0.25% 30 ML VIAL ONE (09:02)
[2022-03-07] MEDS ORDERED: DEXAMETHASONE 4 MG/1 ML VIAL ONE (09:02)
[2022-03-07] MEDS ORDERED: MIDAZOLAM 2 MG/2 ML VIAL ONE (09:02)
[2022-03-07] MEDS ORDERED: fentaNYL 100 MCG/2 ML VIAL ONE (09:02)
[2022-03-07] MEDS ORDERED: LIDOCAINE 2% 5 ML VIAL ONE (09:14)
[2022-03-07] MEDS ORDERED: propofoL 200 MG/20 ML VIAL IV ONE (09:14)
[2022-03-07] MEDS ORDERED: ETOMIDATE 40 MG/20 ML VIAL IV ONE (09:14)
[2022-03-07] MEDS ORDERED: ROCURONIUM 50 MG/5 ML VIAL IV ONE (09:14)
[2022-03-07] MEDS ORDERED: PROMETHAZINE 25 MG/1 ML VIAL IM PRN (10:04)
[2022-03-07] MEDS ORDERED: ONDANSETRON 4 MG/2 ML VIAL IV PRN (10:04)
[2022-03-07] MEDS ORDERED: SODIUM CHLORIDE 0.9% 1,000 ML IV ONE (10:32)
[2022-03-07] MEDS ORDERED: PHENYLEPHRINE 1 MG/10 ML SYRINGE IV ONE ×2 (10:32→11:13)
[2022-03-07] MEDS: POLYETHYLENE GLYCOL POWDER 17 GM PACK PO SCH (10:40)
[2022-03-07] MEDS: DOCUSATE SODIUM 100 MG CAPSULE PO SCH ×3 (10:40→20:39)
[2022-03-07] MEDS: FLECAINIDE 50 MG TABLET PO SCH ×2 (10:40→20:31)
[2022-03-07] MEDS ORDERED: TRANEXAMIC ACID 1,000 MG/10 ML VIAL ONE (10:41)
[2022-03-07] MEDS: PANTOPRAZOLE 40 MG TABLET PO SCH ×2 (10:42→17:40)
[2022-03-07] MEDS ORDERED: SODIUM CHLORIDE 0.9% 100 ML IV ONE (10:43)
[2022-03-07] MEDS ORDERED: ACETAMINOPHEN INJ 1,000 MG/100 ML VIAL IV ONE (10:59)
[2022-03-07] MEDS ORDERED: ONDANSETRON 4 MG/2 ML VIAL ONE (11:03)
[2022-03-07] MEDS ORDERED: GLYCOPYRROLATE 0.4 MG/2 ML VIAL ONE (11:16)
[2022-03-07] MEDS ORDERED: NEOSTIGMINE 10 MG/10 ML VIAL ONE (11:16)
[2022-03-07] MEDS ORDERED: SEVOFLURANE 1 UNIT/15 MINUTE INH ONE (11:20)
[2022-03-07] MEDS: CLINDAMYCIN INJ 900 MG/50 ML PREMIX IV SCH ×3 (14:16→22:22)
[2022-03-07] MEDS ORDERED: NON-FORMULARY MEDICATION (Omeprazole 20 MG capsule,delayed release(DR/EC)) PO SCH (17:00)
[2022-03-07] MEDS: MULTIVITAMIN (OCUVITE) TABLET PO SCH (17:39)
[2022-03-07] MEDS: SULFAMETHOX/TRIMETHOPRIM 800-160 MG TABLET PO SCH (17:40)
[2022-03-07] MEDS: PROPRANOLOL 40 MG TABLET PO SCH (20:31)
[2022-03-07] MEDS: NORTRIPTYLINE 25 MG CAPSULE PO SCH (20:32)
[2022-03-08 05:12] LABS: Basophils % 0.1 % (0.0-0.8); Eosinophils # 0.1 10*3/uL (0.0-0.87); Eosinophils % 0.4 % (0.00-10.9); Hematocrit 30.7 VOL% (35.7-47.0); Hemoglobin 9.7 GM/DL (12.0-16.0); Immature Granulocytes % 0.7 %; Immature Granulocytes Absolute 0.09 #; Lymphocytes # 0.7 10*3/uL (1.4-4.0); Mean Corpuscular HGB Conc 31.6 GM/DL (32-36); Mean Platelet Volume 10.7 FL (9.6-12.0); Monocytes # 0.8 10*3/uL (0.11-0.8); Monocytes % 6.3 % (1.7-12.7); Neutrophils % 86.5 % (38.7-73.9); Platelet Count 165 T/CUMM (130-400); Red Blood Count 3.23 MC/CUMM (3.8-5.5); Red Cell Distribution Width 12.5 % (9.3-17.3); White Blood Count 12.1 T/CUMM (4-12)
[2022-03-08 05:34] LABS: Calcium 8.4 MG/DL (8.5-10.1); Osmolality,Calculated 275.7 MOS/KG (273-304); Potassium 4.8 MMOL/L (3.5-5.1)
[2022-03-08] MEDS: FONDAPARINUX 2.5 MG/0.5 ML SYRINGE SUBCUT SCH (06:03)
[2022-03-08] MEDS: FLECAINIDE 50 MG TABLET PO SCH ×2 (08:18→20:02)
[2022-03-08] MEDS: SULFAMETHOX/TRIMETHOPRIM 800-160 MG TABLET PO SCH (08:18)
[2022-03-08] MEDS: DOCUSATE SODIUM 100 MG CAPSULE PO SCH ×4 (08:18→21:33)
[2022-03-08] MEDS: PROPRANOLOL 40 MG TABLET PO SCH (08:19)
[2022-03-08] MEDS: POLYETHYLENE GLYCOL POWDER 17 GM PACK PO SCH (08:19)
[2022-03-08] MEDS ORDERED: NALOXONE 0.4 MG/ML VIAL IV ONE (09:20)
[2022-03-08] MEDS ORDERED: NALOXONE 0.4 MG/ML VIAL ONE (09:21)
[2022-03-08] MEDS: SODIUM CHLORIDE 0.9% 1,000 ML IV SCH ×4 (09:30→23:32)
[2022-03-08 09:58] LABS: Basophils % 0.2 % (0.0-0.8); Eosinophils # 0.1 10*3/uL (0.0-0.87); Eosinophils % 0.4 % (0.00-10.9); Hematocrit 27.8 VOL% (35.7-47.0); Hemoglobin 8.9 GM/DL (12.0-16.0); Immature Granulocytes % 1.2 %; Immature Granulocytes Absolute 0.16 #; Lymphocytes # 1.8 10*3/uL (1.4-4.0); Lymphocytes % 13.4 % (21.3-54.2); Mean Corpuscular Volume 95.2 FL (87-102); Mean Platelet Volume 9.2 FL (9.6-12.0); Monocytes # 1.2 10*3/uL (0.11-0.8); Neutrophils % 75.8 % (38.7-73.9); Platelet Count 239 T/CUMM (130-400); Red Blood Count 2.92 MC/CUMM (3.8-5.5); Red Cell Distribution Width 12.9 % (9.3-17.3); White Blood Count 13.3 T/CUMM (4-12)
[2022-03-08 10:04] LABS: Arterial Base Excess iSTAT -3 MMOL/L (-2.5-2.5); Arterial Bicarbonate iSTAT 21.3 MMOL/L (20-26); Arterial O2 Saturation iSTAT 94 % (95-100); Arterial PCO2 iSTAT 35 MM HG (35-48); Arterial PO2 iSTAT 72 MM HG (80-95); Arterial Total CO2 iSTAT 22 MMO/L (23-27); Arterial pH iSTAT 7.394 (7.35-7.45)
[2022-03-08 10:21] LABS: Albumin 2.2 G/DL (3.4-5.0); Bilirubin,Total 0.4 MG/DL (0.20-1.00); Calcium 8.3 MG/DL (8.5-10.1); Potassium 4.7 MMOL/L (3.5-5.1); Total Protein 5.2 G/DL (6.4-8.2)
[2022-03-08] MEDS ORDERED: SODIUM CHLORIDE 0.9% 1,000 ML IV SCH (11:00)
[2022-03-08] MEDS ORDERED: NOREPINEPHRINE 4 MG/4 ML VIAL IV ONE (11:03)
[2022-03-08] MEDS ORDERED: NOREPINEPHRINE 8 MG in SODIUM CHLORIDE 0.9% 242 ML IV PRN (12:00)
[2022-03-08 15:44] LABS: Hematocrit 24.9 VOL% (35.7-47.0)
[2022-03-08] MEDS: MULTIVITAMIN (OCUVITE) TABLET PO SCH (18:32)
[2022-03-08] MEDS: PANTOPRAZOLE 40 MG TABLET PO SCH (18:32)
[2022-03-08] MEDS: NORTRIPTYLINE 25 MG CAPSULE PO SCH (20:00)
[2022-03-08 23:42] LABS: Hematocrit 20.1 VOL% (35.7-47.0)
[2022-03-08 23:43] LABS: Hemoglobin 6.4 GM/DL (12.0-16.0)
[2022-03-09] MEDS ORDERED: SODIUM CHLORIDE 0.9% 1,000 ML IV PRN (00:07)
[2022-03-09] MEDS: SODIUM CHLORIDE 0.9% 1,000 ML IV SCH ×4 (02:30→20:30)
[2022-03-09 08:36] LABS: Basophils % 0.3 % (0.0-0.8); Eosinophils # 0.3 10*3/uL (0.0-0.87); Eosinophils % 2.3 % (0.00-10.9); Hematocrit 32.1 VOL% (35.7-47.0); Immature Granulocytes % 1.1 %; Immature Granulocytes Absolute 0.13 #; Lymphocytes # 1.7 10*3/uL (1.4-4.0); Lymphocytes % 14.9 % (21.3-54.2); Mean Corpuscular Volume 91.5 FL (87-102); Mean Platelet Volume 10.2 FL (9.6-12.0); Monocytes # 1.1 10*3/uL (0.11-0.8); Monocytes % 9.4 % (1.7-12.7); Red Cell Distribution Width 13.5 % (9.3-17.3); White Blood Count 11.4 T/CUMM (4-12)
[2022-03-09 08:38] LABS: Red Blood Count 3.51 MC/CUMM (3.8-5.5)
[2022-03-09 08:39] LABS: Hemoglobin 10.6 GM/DL (12.0-16.0); Platelet Count 155 T/CUMM (130-400)
[2022-03-09 08:41] LABS: Calcium 8.3 MG/DL (8.5-10.1); Osmolality,Calculated 277.7 MOS/KG (273-304); Potassium 4.2 MMOL/L (3.5-5.1)
[2022-03-09] MEDS: POLYETHYLENE GLYCOL POWDER 17 GM PACK PO SCH (10:00)
[2022-03-09] MEDS: FONDAPARINUX 2.5 MG/0.5 ML SYRINGE SUBCUT SCH (10:01)
[2022-03-09] MEDS: FLECAINIDE 50 MG TABLET PO SCH ×2 (10:01→20:41)
[2022-03-09] MEDS: DOCUSATE SODIUM 100 MG CAPSULE PO SCH ×3 (10:01→20:41)
[2022-03-09] MEDS: PANTOPRAZOLE 40 MG TABLET PO SCH (17:32)
[2022-03-09] MEDS: MULTIVITAMIN (OCUVITE) TABLET PO SCH (17:32)
[2022-03-09] MEDS: NORTRIPTYLINE 25 MG CAPSULE PO SCH (20:41)
[2022-03-10] MEDS: SODIUM CHLORIDE 0.9% 1,000 ML IV SCH ×3 (03:59→20:02)
[2022-03-10 07:41] LABS: Basophils % 0.3 % (0.0-0.8); Eosinophils # 0.2 10*3/uL (0.0-0.87); Eosinophils % 2.5 % (0.00-10.9); Hematocrit 24.1 VOL% (35.7-47.0); Immature Granulocytes % 1.1 %; Lymphocytes # 1.8 10*3/uL (1.4-4.0); Lymphocytes % 19.6 % (21.3-54.2); Mean Corpuscular HGB Conc 33.2 GM/DL (32-36); Mean Platelet Volume 9.9 FL (9.6-12.0); Monocytes # 0.9 10*3/uL (0.11-0.8); Monocytes % 9.8 % (1.7-12.7); Neutrophils % 66.7 % (38.7-73.9); Platelet Count 140 T/CUMM (130-400); Red Cell Distribution Width 13.8 % (9.3-17.3); White Blood Count 9.1 T/CUMM (4-12)
[2022-03-10 07:43] LABS: Red Blood Count 2.62 MC/CUMM (3.8-5.5)
[2022-03-10 07:54] LABS: Calcium 8.1 MG/DL (8.5-10.1); Osmolality,Calculated 275.5 MOS/KG (273-304); Potassium 4.2 MMOL/L (3.5-5.1)
[2022-03-10] MEDS: FLECAINIDE 50 MG TABLET PO SCH ×2 (08:59→21:08)
[2022-03-10] MEDS: DOCUSATE SODIUM 100 MG CAPSULE PO SCH ×2 (08:59→21:08)
[2022-03-10] MEDS: POLYETHYLENE GLYCOL POWDER 17 GM PACK PO SCH (09:00)
[2022-03-10] MEDS: FONDAPARINUX 2.5 MG/0.5 ML SYRINGE SUBCUT SCH (10:18)
[2022-03-10] MEDS: MULTIVITAMIN (OCUVITE) TABLET PO SCH (16:54)
[2022-03-10] MEDS: PANTOPRAZOLE 40 MG TABLET PO SCH (16:54)
[2022-03-10] MEDS: NORTRIPTYLINE 25 MG CAPSULE PO SCH (21:08)
[2022-03-10] MEDS: FLUTICASONE 50 MCG NASAL SPRAY 16 GM BOTTLE BOTH NARES SCH (21:08)
[2022-03-11] MEDS: SODIUM CHLORIDE 0.9% 1,000 ML IV SCH ×2 (04:18→14:53)
[2022-03-11 06:13] LABS: Calcium 7.9 MG/DL (8.5-10.1); Osmolality,Calculated 279.1 MOS/KG (273-304); Potassium 3.6 MMOL/L (3.5-5.1)
[2022-03-11] MEDS: FONDAPARINUX 2.5 MG/0.5 ML SYRINGE SUBCUT SCH (06:34)
[2022-03-11 06:49] LABS: Basophils % 0.2 % (0.0-0.8); Eosinophils # 0.2 10*3/uL (0.0-0.87); Eosinophils % 1.8 % (0.00-10.9); Hematocrit 24.6 VOL% (35.7-47.0); Hemoglobin 8.2 GM/DL (12.0-16.0); Immature Granulocytes % 1.4 %; Immature Granulocytes Absolute 0.15 #; Lymphocytes # 1.5 10*3/uL (1.4-4.0); Mean Corpuscular HGB Conc 33.3 GM/DL (32-36); Mean Corpuscular Volume 90.4 FL (87-102); Mean Platelet Volume 9.4 FL (9.6-12.0); Monocytes # 1.1 10*3/uL (0.11-0.8); Monocytes % 9.9 % (1.7-12.7); Neutrophils % 72.7 % (38.7-73.9); Platelet Count 177 T/CUMM (130-400); Red Blood Count 2.72 MC/CUMM (3.8-5.5); Red Cell Distribution Width 13.8 % (9.3-17.3); White Blood Count 10.6 T/CUMM (4-12)
[2022-03-11] MEDS: FLUTICASONE 50 MCG NASAL SPRAY 16 GM BOTTLE BOTH NARES SCH (08:46)
[2022-03-11] MEDS: DOCUSATE SODIUM 100 MG CAPSULE PO SCH (08:47)
[2022-03-11] MEDS: POLYETHYLENE GLYCOL POWDER 17 GM PACK PO SCH (08:48)
[2022-03-11] MEDS: FLECAINIDE 50 MG TABLET PO SCH (08:48)
[2022-03-11 11:44] VITALS: BP 139/73
[2022-03-11] MEDS ORDERED: PROPRANOLOL 40 MG TABLET PO SCH (12:00)
[2022-03-11] MEDS ORDERED: MAGNESIUM HYDROXIDE SUSP 30 ML UDCUP PO PRN (12:45)
== END 2022-03-11 15:09 | disposition swing bed (61) | DRG 956 ==
LOC: EDUNIT# → EDBD → N.ED 20:39 → SUATTDRO 22:07 → N.EDINP 22:07 → N.3E 22:49 → N.CC 03-08 09:52 → N.ICU 03-08 10:00 → N.3E 03-09 19:55
PROVIDERS: ADMIT Hospitalist; ATTEND Internal Medicine